=== PATIENT | female | born 1950 | race Caucasian/White ===

== ENCOUNTER 2017-08-11 06:21 | Day surgery (SDC) | payer OTHER, MEDICARE ==
[2017-08-11] MEDS: IV RINGERS,LACTATED 1000ML 1,000 ML IV (06:59)
[2017-08-11 07:00] LABS: POC GLUCOSE 74 mg/dL (70-99)
[2017-08-11] MEDS ORDERED: MORPHINE SULFATE 4 MG/ML DISP.SYRIN. IV (07:00)
[2017-08-11] MEDS ORDERED: fentaNYL PF VIAL 100 MCG/2 ML VIAL IV (07:00)
[2017-08-11] MEDS ORDERED: ONDANSETRON PF 4 MG/2 ML VIAL. IV (07:00)
[2017-08-11] MEDS ORDERED: PROCHLORPERAZINE 10 MG/2 ML VIAL. IV (07:00)
[2017-08-11] MEDS ORDERED: LIDOCAINE 1% PF 2 ML VIAL. ID (07:00)
[2017-08-11] MEDS ORDERED: fentaNYL PF VIAL 250 MCG/5 ML VIAL (07:58)
[2017-08-11] MEDS ORDERED: MIDAZOLAM HCL/PF 2 MG/2 ML VIAL. (07:58)
[2017-08-11] MEDS ORDERED: ceFAZolin 2GM PREMIX 2 GM/50 ML BAG IV (08:00)
[2017-08-11] MEDS: BUPIVACAINE 0.25% 50 ML VIAL. (08:13)
[2017-08-11] MEDS ORDERED: HYDROCORTISONE SOD SUCC/PF 100 MG/2 ML VIAL. (08:29)
[2017-08-11] MEDS: fentaNYL PF VIAL 100 MCG/2 ML VIAL IV (08:48)
[2017-08-11 09:04] LABS: POC GLUCOSE 79 mg/dL (70-99)
== END 2017-08-11 09:38 | disposition home or self-care (01) ==
LOC: SURG 06:21
DX: M31.6 Other giant cell arteritis (principal); I10 Essential (primary) hypertension; E78.00 Pure hypercholesterolemia, unspecified; Z98.51 Tubal ligation status; M19.90 Unspecified osteoarthritis, unspecified site; Z96.653 Presence of artificial knee joint, bilateral; E16.2 Hypoglycemia, unspecified; Z86.19 Personal history of other infectious and parasitic diseases; Z98.890 Other specified postprocedural states; Z79.899 Other long term (current) drug therapy; Z88.1 Allergy status to other antibiotic agents
CPT/HCPCS: 37609; 82962; 88305; J0690; J1720; J2250; J3010; J3490; J7120